=== PATIENT | female | born 1960 | race Caucasian/White ===

== ENCOUNTER → 2016-04-19 | Outpatient (CLI) | payer BC ==
[2016-04-19 10:26] LABS: ALT 38 U/L (9-52); AST 25 U/L (14-36); Alkaline Phosphatase 81 U/L (38-126); Anion Gap 12 mmol/L; Blood Urea Nitrogen 14 mg/dL (7-17); Calcium 9.8 mg/dL (8.4-10.2); Carbon Dioxide 29 mmol/L (22-30); Chloride 101 mmol/L (98-107); Cholesterol 214 mg/dL (<200); Glucose 101 mg/dL (74-99); HDL Cholesterol 79 mg/dL (40-60); Hemoglobin A1C 5.2 % (4.2-6.1); Non-African American GFR(MDRD) >60 (>60 ml/min/1.73 sqM); Sodium 142 mmol/L (137-145); Total Bilirubin 0.6 mg/dL (0.2-1.3); Total Protein 7.4 g/dL (6.3-8.2); Triglycerides 155 mg/dL (<150)
== END ==
LOC: LABWHC1 09:27
PROVIDERS: ATTEND Internal Medicine Endocrinology, Diabetes & Metabolism
DX: Z00.00 Encounter for general adult medical examination without abnormal findings (principal); E03.9 Hypothyroidism, unspecified; E55.9 Vitamin D deficiency, unspecified; R63.5 Abnormal weight gain; R53.83 Other fatigue; G47.00 Insomnia, unspecified; Z13.220 Encounter for screening for lipoid disorders; Z13.1 Encounter for screening for diabetes mellitus
CPT/HCPCS: 36415; 80053; 80061; 82306; 83036; 83735; 84439; 84443; 84481

== ENCOUNTER → 2016-06-08 | Outpatient (CLI) | payer BC ==
--- NOTE | 2016-06-08 11:13 | MM ---
Reason for exam: follow-up at short interval from prior study. Last mammogram was performed 6 months ago. History: Patient had first child at age 35. Family history of breast cancer in mother at age 52. Excisional biopsy of the right breast, June 14, 2007. Took hormonal contraceptives for 10 years beginning at age 25. Taking progesterone for 4 months beginning at age 55. Taking other hormone for 4 months beginning at age 55. Physical Findings: Nurse Summary: 1.5cm nodule in the right breast at 1 o'clock (nurse mm). MG Diagnostic Mammo RT w CAD CC and MLO view(s) were taken of the right breast. Prior study comparison: November 27, 2015, bilateral MG screening mammo w CAD. August 15, 2014, right breast MG work up mamm w CAD RT. The breast tissue is extremely dense which could obscure a lesion on mammography. There is no discrete abnormality at palpable. Stable calcifications in the right breast. No significant new findings when compared with previous films. These results were verbally communicated with the patient and result sheet given to the patient on 06/08/16. ASSESSMENT: Benign, BI-RAD 2 RECOMMENDATION: Return to routine screening mammogram schedule for both breasts. Back on schedule.
--- NOTE | 2016-06-08 11:14 | USB ---
Reason for exam: follow-up at short interval from prior study. History: Patient had first child at age 35. Family history of breast cancer in mother at age 52. Excisional biopsy of the right breast, June 14, 2007. Took hormonal contraceptives for 10 years beginning at age 25. Taking progesterone for 4 months beginning at age 55. Taking other hormone for 4 months beginning at age 55. US Breast RT Right breast ultrasound includes all four quadrants, the retroareolar region and axilla. Finding demonstrates a 3.7 x 1.1 x 2.5cm oval, cystic lesion at 1 o'clock, enlarged. These results were verbally communicated with the patient and result sheet given to the patient on 06/08/16. ASSESSMENT: Benign, BI-RAD 2 RECOMMENDATION: Return to routine screening mammogram schedule for both breasts. Back on schedule.
== END | disposition home or self-care (01) ==
LOC: RADMAMWWP 09:49
PROVIDERS: ATTEND Obstetrics & Gynecology
DX: R92.8 Other abnormal and inconclusive findings on diagnostic imaging of breast (principal)
CPT/HCPCS: 76641; G0206

== ENCOUNTER 2016-06-24 08:04 | Day surgery (SDC) | payer BC ==
[2016-06-08 10:22] VITALS: BMI 25.0
[~2016-06-24 08:04] MED LIST: LACTATED RINGERS 1,000 ML IV SCH
[2016-06-24 08:26] VITALS: TEMP 97
[2016-06-24] MEDS ORDERED: LIDOCAINE 1% 20 ML VIAL (10MG/ML) FOR IV START INTRADERMA ONE (08:36)
[2016-06-24] MEDS ORDERED: PROPOFOL 10 MG/ML 20 ML VIAL IV ONE (10:01)
[2016-06-24] MEDS ORDERED: IV FLUID CONTINUATION 1,000 ML IV ONE (10:25)
--- NOTE | 2016-06-24 10:31 | P.PCN ---
Date of Procedure: 06/24/16 Procedure(s) Performed: Procedure: Total colonoscopy. Preoperative diagnosis: Screening for neoplasia, patient has history of polyps. Postoperative diagnosis: Sigmoid diverticulosis with no evidence of acute diverticulitis, strictures, polyps or cancer. Preparation: HalfLytely prep. Sedation: Was provided by anesthesia. Brief clinical history: The patient is a 56-year-old female who is scheduled for this evaluation for screening for neoplasia because of history of polyps. At this time, she has no abdominal complaints, bleeding or anemia. Procedure: With the patient on her left lateral decubitus position and after informed consent and adequate sedation, the perianal area was inspected and it did not show any fissures or fistulas. There were no masses felt on digital rectal examination. The Olympus CFQ 160L video colonoscope was then inserted in the rectum in the usual fashion and advanced to the cecum. There were few diverticular orifices seen scattered in the sigmoid with no evidence of acute diverticulitis or strictures. No polyps or tumors were seen. I retroflexed endoscope in the rectum before the endoscope was withdrawn. The patient tolerated the procedure well. Plan: The patient was reassured. Discussed dietary measures. With her history , I recommended repeat exam in 5 years. She will follow-up with you as planned.
[2016-06-24 10:43] VITALS: BP 135/85; PULSE 85; RESP 18
== END 2016-06-24 11:06 | disposition home or self-care (01) ==
LOC: ORWHC2ENDO 08:04
DX: Z12.11 Encounter for screening for malignant neoplasm of colon (principal); K57.30 Diverticulosis of large intestine without perforation or abscess without bleeding; Z86.010 Personal history of colon polyps; I10 Essential (primary) hypertension; E07.9 Disorder of thyroid, unspecified; Z79.899 Other long term (current) drug therapy; Z88.0 Allergy status to penicillin; Z88.2 Allergy status to sulfonamides
CPT/HCPCS: 81025; J2704; G0105; 45378

== ENCOUNTER → 2017-01-18 | Outpatient (CLI) | payer BC ==
--- NOTE | 2017-01-19 11:41 | MM ---
Reason for exam: screening (asymptomatic). Last mammogram was performed 7 months ago. History: Patient had first child at age 35. Family history of breast cancer in mother at age 52. Excisional biopsy of the right breast, June 14, 2007. Took hormonal contraceptives for 10 years beginning at age 25. Taking progesterone for 4 months beginning at age 55. Taking other hormone for 4 months beginning at age 55. Physical Findings: A clinical breast exam by your physician is recommended on an annual basis and results should be correlated with mammographic findings. MG Screening Mammo w CAD Bilateral CC and MLO view(s) were taken. Prior study comparison: June 08, 2016, right breast MG diagnostic mammo RT w CAD. November 27, 2015, bilateral MG screening mammo w CAD. August 09, 2014, bilateral MG screening mammo w CAD. August 08, 2013, bilateral MG screening mammo w CAD. The breast tissue is extremely dense which could obscure a lesion on mammography. Finding #1: There is a 42 mm circumscribed oval mass in the inner quadrant of the right breast. Finding #2: There are indeterminate grouped/clustered calcifications in the lower inner quadrant, anterior middle position of the right breast. Increase in size and increase in number of calcifications since June 08, 2016, November 27, 2015, August 09, 2014, and August 08, 2013. ASSESSMENT: Incomplete: need additional imaging evaluation, BI-RAD 0 RECOMMENDATION: Special view mammogram and ultrasound of the right breast. [facility] will attempt to contact patient to return for supplemental views and ultrasound.
== END | disposition home or self-care (01) ==
LOC: RADMAMWWP 15:49
PROVIDERS: ATTEND Obstetrics & Gynecology
DX: Z12.31 Encounter for screening mammogram for malignant neoplasm of breast (principal); Z80.3 Family history of malignant neoplasm of breast

== ENCOUNTER → 2017-08-03 | Outpatient (CLI) | payer BC ==
--- NOTE | 2017-08-03 10:21 | XR ---
EXAMINATION TYPE: XR chest 2V DATE OF EXAM: 08/03/2017 COMPARISON: 08/03/2018 HISTORY: Abnormal breath sounds on physical exam TECHNIQUE: Frontal and lateral views of the chest are obtained. FINDINGS: There is no focal air space opacity, pleural effusion, or pneumothorax seen. The cardiac silhouette size is within normal limits. The osseous structures are intact. Mild multilevel degener ative changes of the thoracic spine are seen. IMPRESSION: No acute cardiopulmonary process.
== END | disposition home or self-care (01) ==
LOC: RADXRMAIN 09:47
PROVIDERS: ATTEND Internal Medicine
DX: R09.89 Other specified symptoms and signs involving the circulatory and respiratory systems (principal)
CPT/HCPCS: 71046

== ENCOUNTER → 2018-01-23 | Outpatient (CLI) | payer BC ==
--- NOTE | 2018-01-23 14:01 | MM ---
Reason for exam: additional evaluation requested from prior study. Last mammogram was performed 1 year ago. History: Patient is postmenopausal and had first child at age 35. Family history of breast cancer in mother at age 52. Excisional biopsy of the right breast, June 14, 2007. Took hormonal contraceptives for 10 years beginning at age 25. Taking progesterone for 4 months beginning at age 55. Taking other hormone for 4 months beginning at age 55. Physical Findings: Nurse Summary: 3cm nodule in the right breast at 1 o'clock (nurse rm). MG Diagnostic Mammo w CAD JESSICA Bilateral CC and MLO view(s) were taken. Prior study comparison: January 28, 2017, right breast MG work up mamm w CAD RT. January 18, 2017, bilateral MG screening mammo w CAD. The breast tissue is heterogeneously dense. This may lower the sensitivity of mammography. There is a right lower inner quadrant mass with milk of calcium appears similar to priors, measuring smaller. This was simple with no internal complexity on the last ultrasound on 01/28/17. These results were verbally communicated with the patient and result sheet given to the patient on 01/23/18. ASSESSMENT: Benign, BI-RAD 2 RECOMMENDATION: Routine screening mammogram of both breasts in 1 year.
== END ==
LOC: RADMAMWWP 12:57
PROVIDERS: ATTEND Obstetrics & Gynecology
DX: N63.10 Unspecified lump in the right breast, unspecified quadrant (principal); N63.20 Unspecified lump in the left breast, unspecified quadrant
CPT/HCPCS: 77066

== ENCOUNTER → 2019-02-05 | Outpatient (CLI) | payer BC ==
--- NOTE | 2019-02-06 08:56 | MM ---
Reason for exam: screening (asymptomatic). Last mammogram was performed 1 year ago. History: Patient is postmenopausal and had first child at age 35. Family history of breast cancer in mother at age 52. Excisional biopsy of the right breast, June 14, 2007. Took hormonal contraceptives for 10 years beginning at age 25. Taking progesterone for 4 months beginning at age 55. Taking other hormone for 4 months beginning at age 55. Physical Findings: A clinical breast exam by your physician is recommended on an annual basis and results should be correlated with mammographic findings. MG Screening Mammo w CAD Bilateral CC and MLO view(s) were taken. Prior study comparison: January 23, 2018, bilateral MG diagnostic mammo w CAD JESSICA. January 28, 2017, right breast MG work up mamm w CAD RT. The breast tissue is extremely dense which could obscure a lesion on mammography. Finding: There is a 25 mm circumscribed oval mass in the lower quadrant of the right breast, sable from 2018, decreased in size from 2017. There is no discrete abnormality. ASSESSMENT: Benign, BI-RAD 2 RECOMMENDATION: Routine screening mammogram of both breasts in 1 year.
== END | disposition home or self-care (01) ==
LOC: RADMAMWWP 14:22
PROVIDERS: ATTEND Family Medicine
DX: Z12.31 Encounter for screening mammogram for malignant neoplasm of breast (principal)
CPT/HCPCS: 77067

== ENCOUNTER → 2020-03-18 | Outpatient (CLI) | payer BC ==
--- NOTE | 2020-03-19 09:51 | MM ---
Reason for exam: screening (asymptomatic). Last mammogram was performed 1 year and 1 month ago. History: Patient is postmenopausal and had first child at age 35. Family history of breast cancer in mother at age 52. Excisional biopsy of the right breast, June 14, 2007. Took hormonal contraceptives for 10 years beginning at age 25. Taking progesterone for 4 months beginning at age 55. Taking other hormone for 4 months beginning at age 55. Physical Findings: A clinical breast exam by your physician is recommended on an annual basis and results should be correlated with mammographic findings. MG Screening Mammo w CAD Bilateral CC and MLO view(s) were taken. Prior study comparison: February 05, 2019, bilateral MG screening mammo w CAD. January 23, 2018, bilateral MG diagnostic mammo w CAD JESSICA. The breast tissue is heterogeneously dense. This may lower the sensitivity of mammography. There are benign appearing round calcifications bilaterally. There is no discrete abnormality. ASSESSMENT: Benign, BI-RAD 2 RECOMMENDATION: Routine screening mammogram of both breasts in 1 year.
== END | disposition home or self-care (01) ==
LOC: RADMAMWWP 11:51
PROVIDERS: ATTEND Obstetrics & Gynecology
DX: Z12.31 Encounter for screening mammogram for malignant neoplasm of breast (principal); Z80.3 Family history of malignant neoplasm of breast
CPT/HCPCS: 77067

== ENCOUNTER → 2021-03-19 | Outpatient (CLI) | payer BC ==
--- NOTE | 2021-03-20 11:37 | MM ---
Reason for exam: screening (asymptomatic). Last mammogram was performed 1 year ago. History: Patient is postmenopausal and had first child at age 35. Family history of breast cancer in mother at age 52. Excisional biopsy of the right breast, June 14, 2007. Took hormonal contraceptives for 10 years beginning at age 25. Taking progesterone for 4 months beginning at age 55. Taking other hormone for 4 months beginning at age 55. Physical Findings: A clinical breast exam by your physician is recommended on an annual basis and results should be correlated with mammographic findings. MG Screening Mammo w CAD Bilateral CC and MLO view(s) were taken. Prior study comparison: March 18, 2020, bilateral MG screening mammo w CAD. February 05, 2019, bilateral MG screening mammo w CAD. The breast tissue is extremely dense which could obscure a lesion on mammography. No significant changes when compared with prior studies. ASSESSMENT: Benign, BI-RAD 2 RECOMMENDATION: Routine screening mammogram of both breasts in 1 year.
== END | disposition home or self-care (01) ==
LOC: RADMAMWWP 13:05
PROVIDERS: ATTEND Obstetrics & Gynecology
DX: Z12.31 Encounter for screening mammogram for malignant neoplasm of breast (principal); Z80.3 Family history of malignant neoplasm of breast; Z78.0 Asymptomatic menopausal state
CPT/HCPCS: 77067

== ENCOUNTER 2021-12-30 09:59 | Day surgery (SDC) | payer BC ==
[2021-12-29 12:56] VITALS: BMI 27.4
[~2021-12-30 09:59] MED LIST changes: -LACTATED RINGERS 1,000 ML IV SCH; +LIDOCAINE 1% (10MG/ML) FOR IV START INTRADERMA PRN; +ONDANSETRON 4 MG/2 ML VIAL IVP PRN
[2021-12-30 11:16] VITALS: RESP 16; TEMP 98.2
[2021-12-30] MEDS: LACTATED RINGERS 1,000 ML IV SCH ×3 (11:16→12:04)
[2021-12-30] MEDS ORDERED: PROPOFOL 10 MG/ML 20 ML VIAL IV ONE (12:03)
[2021-12-30] MEDS ORDERED: LIDOCAINE 2% INJ 20 MG/ML (2 ML VIAL) ONE (12:03)
--- NOTE | 2021-12-30 12:18 | P.PCN ---
Date of Procedure: 12/30/21 Procedure(s) Performed: BRIEF HISTORY: Patient is a 61-year-old pleasant white female scheduled for an elective colonoscopy as a part of screening for colorectal neoplasia. PROCEDURE PERFORMED: Colonoscopy. PREOPERATIVE DIAGNOSIS: Screening for colon cancer. IV sedation per Anesthesia. PROCEDURE: After informed consent was obtained, the patient, was brought into the endoscopy unit. IV sedation was administered by Anesthesia under continuous monitoring. Digital rectal examination was normal. Initially the Olympus CF-160 flexible video colonoscope was then inserted in the rectum, gradually advanced into the cecum without any difficulty. Careful examination was performed as the scope was gradually being withdrawn. Ileocecal valve and the appendiceal orifice were visualized and appeared normal. Prep was excellent. Mucosa of the cecum, ascending colon, transverse colon, descending colon, sigmoid colon, and rectum appeared normal. Retroflexion was performed in the rectum and no lesions were seen. The patient tolerated the procedure well. IMPRESSION: Normal-appearing colon from rectum to cecum with no evidence of colorectal neoplasia. RECOMMENDATIONS: Findings of this examination were discussed with the patient as well as a family. She was advised to have a repeat screening colonoscopy in 10 years.
[2021-12-30 12:51] VITALS: BP 139/85; PULSE 67
== END 2021-12-30 13:05 | disposition home or self-care (01) ==
LOC: ORWHC2ENDO 09:59
PROVIDERS: ATTEND Internal Medicine Gastroenterology
DX: Z12.11 Encounter for screening for malignant neoplasm of colon (principal); F32.A Depression, unspecified; K21.9 Gastro-esophageal reflux disease without esophagitis; E07.9 Disorder of thyroid, unspecified; F17.210 Nicotine dependence, cigarettes, uncomplicated; Z88.0 Allergy status to penicillin; Z88.2 Allergy status to sulfonamides; Z79.899 Other long term (current) drug therapy
CPT/HCPCS: 45378; J2704; J2001

== ENCOUNTER → 2022-03-22 | Outpatient (CLI) | payer BC ==
--- NOTE | 2022-03-23 08:27 | MM ---
Reason for Exam: Screening (asymptomatic). Last screening mammogram was performed 12 month(s) ago. Patient History: Menarche at age 12. First Full-Term at age 35. Late child-bearing (after 30). Postmenopausal. Patient has history of breast feeding. Currently using Progesterone, for 4 months. Hormonal Contraceptives for 10 years from age 25 until age 35. 06/14/2007, Excisional Biopsy on the Right side. Mother had breast cancer, age 52. Risk Values: Mariela 5 year model risk: 3.5%. NCI Lifetime model risk: 16.2%. Prior Study Comparison: 02/05/2019 Bilateral Screening Mammogram, [facility]. 03/18/2020 Bilateral Screening Mammogram, [facility]. 03/19/2021 Bilateral Screening Mammogram, [facility]. Tissue Density: The breast tissue is heterogeneously dense. This may lower the sensitivity of mammography. Findings: Analyzed By CAD. There is no suspicious group of microcalcifications or new suspicious mass in either breast. Benign-appearing round calcifications bilaterally. Overall Assessment: Benign, BI-RAD 2 Management: Screening Mammogram of both breasts in 1 year. A clinical breast exam by your physician is recommended on an annual basis and results should be correlated with mammographic findings. Electronically signed and approved by: Rito Rocha D.O.
== END | disposition home or self-care (01) ==
LOC: RADMAMWWP 13:13
PROVIDERS: ATTEND Obstetrics & Gynecology
DX: Z12.31 Encounter for screening mammogram for malignant neoplasm of breast (principal); Z78.0 Asymptomatic menopausal state; Z80.3 Family history of malignant neoplasm of breast
CPT/HCPCS: 77067

== ENCOUNTER → 2023-03-23 | Outpatient (CLI) | payer BC ==
--- NOTE | 2023-03-24 08:45 | MM ---
Reason for Exam: Screening (asymptomatic). Last screening mammogram was performed 12 month(s) ago. Patient History: Menarche at age 12. First Full-Term at age 35. Late child-bearing (after 30). Postmenopausal. Patient has history of breast feeding. Currently using Progesterone, for 4 months. Hormonal Contraceptives for 10 years from age 25 until age 35. Mother had breast cancer, age 52. Risk Values: Mariela 5 year model risk: 3.1%. NCI Lifetime model risk: 13.5%. Prior Study Comparison: 03/18/2020 Bilateral Screening Mammogram, [facility]. 03/19/2021 Bilateral Screening Mammogram, [facility]. 03/22/2022 Bilateral MG screening mammo w CAD, [facility]. Tissue Density: The breast tissue is heterogeneously dense. This may lower the sensitivity of mammography. Findings: Analyzed By CAD. There is no suspicious group of microcalcifications or new suspicious mass. Overall Assessment: Negative, BI-RAD 1 Management: Screening Mammogram of both breasts in [address] [facility] will attempt to contact patient to return for supplemental views and ultrasound if indicated. Patient should continue monthly self-breast exams. A clinical breast exam by your physician is recommended on an annual basis. This exam should not preclude additional follow-up of suspicious palpable abnormalities. Note on Mariela scores and lifetime risk: 1. A Mariela score greater than 3% is considered moderate risk. If this is the case, consider specialist referral to assess eligibility for a risk reducing agent. 2. If overall lifetime risk for the development of breast cancer is 20% or higher, the patient may qualify for future screening with alternating mammogram and breast MRI. Electronically signed and approved by: Thomas Bernal DO
== END | disposition home or self-care (01) ==
LOC: RADMAMWWP 13:28
PROVIDERS: ATTEND Obstetrics & Gynecology
DX: Z12.31 Encounter for screening mammogram for malignant neoplasm of breast (principal); Z80.3 Family history of malignant neoplasm of breast; Z78.0 Asymptomatic menopausal state
CPT/HCPCS: 77063; 77067

== ENCOUNTER → 2024-04-25 | Outpatient (CLI) | payer BC ==
--- NOTE | 2024-04-25 14:06 | USB ---
Reason for Exam: Clinical finding. Patient History: Menarche at age 12. First Full-Term at age 35. Late child-bearing (after 30). Postmenopausal. Patient has history of breast feeding. Currently using Progesterone, for 4 months. Hormonal Contraceptives for 10 years from age 25 until age 35. 06/14/2007, Excisional Biopsy on the Right side. Mother had breast cancer, age 52. Risk Values: Mariela 5 year model risk: 3.9%. NCI Lifetime model risk: 14.8%. Technique: Method: Whole Breast Handheld. Prior Study Comparison: 03/19/2021 Bilateral Screening Mammogram, [facility]. 03/22/2022 Bilateral MG screening mammo w CAD, [facility]. 03/23/2023 Bilateral MG 3D screening mammo w/cad, [facility]. Findings: The whole breast of the left breast, the axilla of the left breast and the retroareolar of the left breast were scanned. A complete US of all four quadrants of the breast, axilla, and retro-areolar region were reviewed. At 4:00, 4 cm from the nipple, there is a 1.9 x 1.2 x 1.3 cm irregular hypoechoic solid mass with angular margins. Small amount of peripheral vascularity. Very suspicious, mammographic correlate. At 5:00, 4 cm from nipple, there is a lobulated hypoechoic area measuring 1.3 x 0.8 x 0.5 cm. Difficult to determine if this represents a second suspicious site located 1.4 cm away versus interposed fat lobule within very dense tissue. Tissue sampling here also recommended. No other solid or cystic lesion or axillary adenopathy. Overall Assessment: Highly suggestive of malignancy, BI-RAD 5 Management: Ultrasound Core Biopsy of the left breast. Plan for 2 sites. If the second area at 5:00 looks benign at the time of biopsy, the second site biopsy can be discontinued. Results were given to the patient verbally at the time of exam. [facility], , 04/25/2024 2:03 PM. Electronically signed and approved by: Joy Castillo M.D. Radiologist
--- NOTE | 2024-05-03 13:21 | MM ---
Reason for Exam: Clinical finding. Last mammogram was performed 1 year(s) and 2 month(s) ago. Patient History: Menarche at age 12. First Full-Term at age 35. Late child-bearing (after 30). Postmenopausal. Patient has history of breast feeding. Currently using Progesterone, for 4 months. Hormonal Contraceptives for 10 years from age 25 until age 35. Mother had breast cancer, age 52. Risk Values: Mariela 5 year model risk: 3.9%. NCI Lifetime model risk: 14.8%. Prior Study Comparison: 01/23/2018 Bilateral Diagnostic Mammogram, [facility]. 02/05/2019 Bilateral Screening Mammogram, [facility]. 03/18/2020 Bilateral Screening Mammogram, [facility]. 03/19/2021 Bilateral Screening Mammogram, [facility]. 03/22/2022 Bilateral MG screening mammo w CAD, [facility]. 03/23/2023 Bilateral MG 3D screening mammo w/cad, [facility]. Tissue Density: The breasts are heterogeneously dense, which may obscure small masses. Findings: Analyzed By CAD. Suspicious 1.4 cm spiculated mass underlying the patient's palpable site. Area of asymmetric density central posterior CC view does not persist on additional views. Otherwise, no significant change. Further ultrasound evaluation recommended. Overall Assessment: Incomplete: need additional imaging evaluation, BI-RAD 0 Management: Diagnostic Breast Ultrasound of the left breast. [facility], , 04/25/2024 1:24 PM. Electronically signed and approved by: Joy Castillo M.D. Radiologist
== END | disposition home or self-care (01) ==
LOC: RADMAMWWP 12:43
PROVIDERS: ATTEND Obstetrics & Gynecology
DX: N63.20 Unspecified lump in the left breast, unspecified quadrant (principal); R92.333 Mammographic heterogeneous density, bilateral breasts; Z78.0 Asymptomatic menopausal state; Z80.3 Family history of malignant neoplasm of breast
CPT/HCPCS: 77062; 77066

== ENCOUNTER → 2024-04-30 | Day surgery (SDC) | payer BC ==
--- NOTE | 2024-05-04 12:05 | MM ---
Reason for Exam: Post Procedure Mammogram. Last screening mammogram was performed less than 1 month ago. Patient History: Menarche at age 12. First Full-Term at age 35. Late child-bearing (after 30). Postmenopausal. Patient has history of breast feeding. Currently using Progesterone, for 4 months. Hormonal Contraceptives for 10 years from age 25 until age 35. 06/14/2007, Excisional Biopsy on the Right side. Mother had breast cancer, age 52. Risk Values: Mariela 5 year model risk: 3.9%. NCI Lifetime model risk: 14.8%. Prior Study Comparison: 03/22/2022 Bilateral MG screening mammo w CAD, [facility]. 03/23/2023 Bilateral MG 3D screening mammo w/cad, [facility]. 04/25/2024 Bilateral MG 3D diag mammo w/cad [facility], [facility]. Tissue Density: Left: The breasts are heterogeneously dense, which may obscure small masses. Pathology Description: Location: axilla. Marker Left Behind. Needle Type: Celero Cores: 2 Gauge: 12 Pathology Description: Location: 4 o'clock. Marker Left Behind. Needle Type: Celero Cores: 3 Gauge: 12 The procedure of ultrasound guided core biopsy was explained to the patient. Benefits, alternatives, and risks were discussed. An informed consent was then obtained. The patient was placed in supine positioning for imaging and for the procedure. The overlying skin was prepped and draped in usual sterile fashion. Lidocaine buffered with bicarbonate was used as anesthetic into the skin and subcutaneous tissue up to area of concern in the left 4:00 breast. Also biopsied was a focal area of abnormality involving a left axillary lymph node with 2 core samples obtained.. Under ultrasound guidance, a 12-gauge vacuum assisted biopsy gun device was used to obtain 3 core samples at the left 4:00 location and 3 cores involving the left axillary lymph node. Following this, a butterfly marker was left at the 4 o'clock lesion and [place] marker within the left axillary lymph node.The patient tolerated the procedure well without any immediate complication. The patient was kept in the radiology department for short stay after the procedure and then discharged home in stable condition. Postprocedure mammogram: The patient was transferred to mammography for physician ordered post procedure mammogram for clip placement verification. Post procedure mammogram demonstrates the clip in appropriate placement. Impression: Successful, uncomplicated ultrasound guided core biopsy of area of concern in the left 4:00 breast and a left axillary lymph node, full pathology results to follow. [facility], , 04/30/2024 2:44 PM. Pathology Results: Result: Malignant, Invasive ductal carcinoma. Pathology and radiology were reviewed. Findings are concordant. A. 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 See Surgical Pathology Cancer Case Summary. B. LEFT AXILLA, CORE BIOPSY: Lymph node positive for metastatic carcinoma consistent with ductal mammary origin. Greatest dimension of metastatic tumor deposit measures 4 mm. Extranodal extension is not identified. Overall Assessment: Malignant Assessment: MG diagnostic mammo LT wo CAD. - Left: Known biopsy proven malignancy, BI-RAD 6. Management: Surgical Consultation of the left breast. Electronically signed and approved by: Hamlet Caruso M.D. Radiologis
== END ==
LOC: RADUSWWP 12:10
PROVIDERS: ATTEND Surgery
DX: C50.912 Malignant neoplasm of unspecified site of left female breast (principal); C77.3 Secondary and unspecified malignant neoplasm of axilla and upper limb lymph nodes; Z78.0 Asymptomatic menopausal state; Z80.3 Family history of malignant neoplasm of breast
CPT/HCPCS: 88305; 88342; 88341; 77065; 19083; 19084; 38505; A4648

== ENCOUNTER → 2024-05-11 | Outpatient (CLI) | payer BC ==
[2024-05-11 08:25] VITALS: BP 144/92; PULSE 89; RESP 16; TEMP 97.9
--- NOTE | 2024-05-11 09:14 | P.GSCN ---
History of Present Illness Consult date: 05/11/24 Reason for Consult: left breast invasive ductal cancer Requesting physician: Eleno Strauss History of present illness: Cori is a 64-year-old female seen in consultation for Dr. Strauss regarding a biopsy-proven left breast invasive ductal carcinoma. She underwent a bilateral diagnostic mammogram on 04 25 24. This revealed a suspicious 1.4 cm spiculated mass in the left breast. Left breast ultrasound was performed. This revealed at 4:00 4 cm from the nipple a 1.9 cm irregular hypoechoic solid mass which was considered suspicious. At 5:00 4 cm from the nipple there was a lobulated hypoechoic area measuring 1.3 cm. Ultrasound core biopsy of the left breast was recommended with attention to both sites. Ultrasound core biopsy was performed on 04 30 24. At the time of ultrasound core biopsy a biopsy at the 4 o'clock position of the left breast as well as a left axillary lymph node was performed. Both were positive for invasive ductal carcinoma. Tumor markers are pending. She could feel a spot in her left breast for about three weeks. She had lost about 20 pounds secondary to weight loss. She has had a right breast biopsy 15 years ago which was benign. She is not complaining of any nipple discharge or skin changes. She is not complaining of any recent infection or trauma to her breast. Caffeine: 4 cups/day nicotine: 15 cigarettes/weeks for 40 years chocolate: weekly BCP: 15 years hormones: bioT, last inkection 2024 Family History: mother: breast cancer twice bilateral breast father: cancer of the penis maternal grandfather: prostate cancer Hormonal History: menarche: 12 M2, breast fed: yes, age at first : 35 menopause: 57 hormones: BIOT 10 years Surgical HIstory: colonoscopy breast biopsy uterus laparoscopic procedure Medical HIStory: Mayank's Vitiligo Social History: nicotine: as above alcohol: 3 drinks/week drugs: gummies CBD , once a month to relax Review of Systems - Constitutional Denies fever, Denies weight loss - EENT Eyes: denies blurred vision Ears: deny: decreased hearing, tinnitus Ears, nose, mouth and throat: Denies dysphagia - Breasts bilateral: as per HPI - Cardiovascular Denies chest pain, Denies shortness of breath - Gastrointestinal Reports as per HPI - Genitourinary Genitourinary: Denies dysuria, Denies hematuria Menstruation: Reports postmenopausal - Musculoskeletal Reports as per HPI - Integumentary Denies rash, Denies unusual bruising - Neurological Denies headaches, Denies syncope - Psychiatric Reports as per HPI, Reports depression - Endocrine Reports as per HPI, Reports weight change - Hematologic/Lymphatic Reports as per HPI - Allergic/Immunologic Reports as per HPI Past Medical History Past Medical History: GERD/Reflux, Thyroid Disorder Additional Past Medical History / Comment(s): occasional edema. Vitaligo. Tested positve for TB in 1990, treatment completed INH fpr 6 months. History of Any Multi-Drug Resistant Organisms: None Reported Past Surgical History: Breast Surgery Additional Past Surgical History / Comment(s): laproscopic uterine bx, rt breast bx, colonoscopy Past Anesthesia/Blood Transfusion Reactions: No Reported Reaction Past Psychological History: Depression Smoking Status: Current some day smoker Past Alcohol Use History: Occasional Additional Past Alcohol Use History / Comment(s): started smoking 2020,1ppd,quit smoking 2006, smoked 1ppd, from age 16 . Smokes about 15 ci Past Drug Use History: None Reported - Past Family History Mother Family Medical History: Cancer Additional Family Medical History / Comment(s): breast Medications and Allergies Home Medications Medication Instructions Recorded Confirmed Type Liothyronine Sodium [Cytomel] 10 mcg PO BID 06/08/16 05/11/24 History Multivitamins, Thera [Multivitamin 1 tab PO DAILY 06/08/16 05/11/24 History (formulary)] Ergocalciferol [Vitamin D2 (1250 1,250 mcg PO Q14D 12/29/21 05/11/24 History Mcg = [id number] Iu)] FLUoxetine HCL 40 mg PO 1100 12/29/21 05/11/24 History Famotidine [Pepcid] 40 mg PO BID 12/29/21 05/11/24 History Progesterone, Micronized 200 mg PO HS 12/29/21 05/11/24 History [Progesterone] Synthroid(No Generic) 50 mcg PO QAM 12/29/21 05/11/24 History Calcium Carbonate/Vitamin D3 1 each PO DAILY 04/26/24 05/11/24 History [Calcium 500 mg-Vit D3 5 mcg (200 Unit)] Ferrous Sulfate [Feosol] 325 mg PO DAILY 04/26/24 05/11/24 History Triamterene-Hctz 37.5-25Mg 1 cap PO DAILY 04/26/24 05/11/24 History [Dyazide 37.5-25 Capsule] Allergies Allergy/AdvReac Type Severity Reaction Status Date / Time Penicillins Allergy not sure Verified 05/11/24 08:23 if allergic Sulfa (Sulfonamide Allergy Rash/Hives Verified 05/11/24 08:23 Antibiotics) Surgical - Exam Vital Signs Temp Pulse Resp BP Pulse Ox 97.9 F 89 16 144/92 99 05/11/24 08:23 05/11/24 08:23 05/11/24 08:23 05/11/24 08:23 05/11/24 08:23 - General no distress - Eyes normal ocular movement - Neck trachea midline - Respiratory normal respiratory effort, clear to auscultation - Cardiovascular Rhythm: regular Heart Sounds: normal: S1, S2 - Abdomen Abdomen: soft, non tender, no guarding, no rigid, no rebound - Integumentary normal turgor - Neurologic no disoriented, no combative - Musculoskeletal normal gait - Psychiatric oriented to time, oriented to person, oriented to place, speech is normal, memory intact Breast Exam: Bra: 36C inspection: Bilateral grade 2 ptosis Palpation: Right breast: Fibrocystic changes no dominant masses or nodules of concern Right axilla: Shotty adenopathy nonworrisome Left breast: Multi positional exam approximately 1.5 to 2 cm lesion in the 4 o'clock position of the left breast, this is near the area of the biopsy site which is clean and dry no evidence of infection or hematoma Left axilla: No adenopathy of concern, biopsy site clean and dry Results Mammogram and ultrasound results reviewed Pathology results reviewed Left breast invasive ductal carcinoma/positive lymph node Assessment and Plan Assessment: Impression: Left breast invasive ductal carcinoma Plan: Presentation of case at tumor board CC: Dr. Strauss
== END ==
LOC: WWCWWP 08:06
PROVIDERS: ATTEND Surgery
DX: C50.912 Malignant neoplasm of unspecified site of left female breast (principal); Z80.3 Family history of malignant neoplasm of breast; F12.90 Cannabis use, unspecified, uncomplicated; Z87.891 Personal history of nicotine dependence; Z88.0 Allergy status to penicillin; Z88.2 Allergy status to sulfonamides

== ENCOUNTER → 2024-06-01 | Outpatient (CLI) | payer BC ==
--- NOTE | 2024-06-02 17:46 | PE ---
EXAMINATION TYPE: PET CT fusion skull to thigh DATE OF EXAM: 06/01/2024 CLINICAL INDICATION:Female, 64 years old with history of C50.512 Breast CA; TECHNIQUE: Following the intravenous administration of 10.26 mCi of F-18 FDG, whole body images are performed from the skull base to the midthigh. Images are reviewed on the computer in the coronal, axial, and sagittal planes. Reconstructed rotating images are created on independent workstation and reviewed on the computer. A non-contrast CT is performed in conjunction with the PET scan. Glucose level 98 mg/dL CT DLP: 314.70 mGycm, Automated exposure control for dose reduction was used. COMPARISON: CT None, PET/CT None, MRI: None FINDINGS: Mediastinal SUV mean is 2.3. Hepatic parenchyma SUV mean is 2.8. SKULL BASE AND NECK: No suspicious radiotracer activity. CHEST, MEDIASTINUM, AND HILAR REGION: Focal region of radiotracer activity within the left lateral inferior breast grossly measuring 1.5 cm with a maximum SUV 6.3. ABDOMEN AND PELVIS: No suspicious radiotracer activity. MUSCULOSKELETAL STRUCTURES: No suspicious radiotracer activity. OTHER CT: Mild cardiomegaly. Cholelithiasis. Left adrenal gland 3.2 cm benign lipid rich adenoma. No suspicious FDG activity. Uterine calcified fibroid degenerative changes with bilateral facet arthropa thy at L5-S1 and L4-L5 with mild FDG activity consistent with inflammatory changes. Couple of focal s oft tissue nodules within the bilateral lower back/gluteal region subcutaneous tissues most consisten t with granulomatous inflammatory changes. IMPRESSION: 1. Focal region of radiotracer activity within the left breast corresponding to known breast cancer. 2. No other suspicious FDG activity to suggest metastasis. [facility], , 06/02/2024 5:44 PM
== END | disposition home or self-care (01) ==
LOC: RADPETMAIN 14:52
PROVIDERS: ATTEND Internal Medicine Hematology & Oncology
DX: C50.512 Malignant neoplasm of lower-outer quadrant of left female breast (principal); I51.7 Cardiomegaly
CPT/HCPCS: 78815; A9552